=== PATIENT | male | born 1960 | race Caucasian/White ===

== ENCOUNTER 2025-02-02 11:19 | Emergency (ER) | payer SELFPAY ==
[2025-02-02 11:21] VITALS: BP 183/108
--- NOTE | 2025-02-02 12:09 | ED.GENMED ---
History of Present Illness
General
Chief Complaint: Back Pain
Source: patient
Exam Limitations: none
Time Seen by Provider: 02/02/25 11:50
Nursing documentation reviewed up to this point in time: agreed with
History of Present Illness
History of Present Illness:
64-year-old male presents to the ER for evaluation of back pain. Patient has a history of herniated disks in 2007. Reports he was doing a lot of heavy labor on 5 days ago lifting heavy cement and on Saturday started with low back pain and
radiates into his left leg. Pain is gone progressively worse. He denies any bowel or bladder incontinence he denies any weakness. He has been taking Tylenol in fact last about 2 AM without relief.
Phy Exam
General Physical Exam
General Presentation: no apparent distress
General age: appears stated age
General Skin: warm
General Habitus: normal
General Mental: alert
General Hydration: appears well hydrated
Neurological Exam
Neurological Exam: alert, no motor deficits, no sensory deficits and other (Intact sensation to bilateral extremities normal dorsiflexion movement of flexion; negative straight leg raise )
Anjum Coma Scale
Eye Opening: Spontaneous
Verbal Response: Oriented
Motor Response: Obeys Commands
GCS Total Score: 15
Musculoskeletal Exam
Musculoskeletal Exam: full ROM and other (+ lumbar pain with movement, no midline tenderness + b/l paraspinal muscle tenderness )
Course
Orders/Labs/Results
Orders:
Orders
02/02/25 12:09
Dexamethasone Sod Phosphate [Decadron] 10 mg IM NOW STA
HYDROmorphone [Dilaudid] 1 mg IM NOW STA
Lidocaine [Lidocaine 4% Patch] 1 patch TOPICAL NOW STA
Apply Lidocaine patch(s) to:: lower back
02/02/25 14:11
Lumbar Spine Complete, 4 View [CR Lumbar Spine Comp Min 4 Vw*] Urgent
Comment:
Reason For Exam: pain after lifting
Vital Signs
Initial and Last Documented VS:
Initial Vital Signs
Temp Pulse Resp BP Pulse Ox
98 F 78 16 183/108 99
02/02/25 11:21 02/02/25 11:21 02/02/25 11:21 02/02/25 11:21 02/02/25 11:21
Last Documented Vital Signs
Temp Pulse Resp BP Pulse Ox
98 F 78 16 183/108 99
02/02/25 11:21 02/02/25 11:21 02/02/25 11:21 02/02/25 11:21 02/02/25 12:15
MDM/Problems Addressed
Differential Diagnosis Includes:
Not limited to muscle sprain strain, sciatica, lumbar compression fracture
MDM/Problems Addressed:
Symptoms are consistent muscle sprain strain, mild sciatica. No neurological deficits .patient received pain medication here and steroids feeling much better he does report Flexeril worked in the past for him. Will DC with Decadron and Flexeril
close outpatient follow-up family doctor or orthopedics as needed.
*Radiology
Radiology exam reviewed: radiology read reviewed
*Pulse Oximetry
SaO2: 99
Oxygen Mode of Delivery: Room air
Patient hypoxic: no
*Critical Care Note
Total Time (30-74mins, 75-104mins- exclusive of procedures): Not Applicable
ED Attending Note
-
Portions of this chart may have been created with voice recognition software.� Occasional wrong word or��sound alike� substitutions may have occurred due to the inherent limitations of voice recognition software.
Discharge Plan
Departure
Patient Disposition: Home (Routine Discharge)
Date of Disposition: 02/02/25
Time of Disposition: 15:19
Patient with high blood pressure during this ER visit?: Yes
Condition: Fair
Covid-19: Not Applicable
Discharge Problem:
Lumbar spine strain, Sciatica
Instructions: Sciatica (DC), Low back pain - ED (DC), BLOOD PRESSURE
Prescriptions:
New
prednisone 10 mg Tablet
See Rx Instructions .ROUTE .COMPLEX Qty: 30 0RF
Rx Instructions:
Take By Mouth:
40 mg daily x3 days, 30 mg daily x3 days,
20 mg daily x3 days, 10 mg daily x3 days.
cyclobenzaprine 10 mg tablet
10 mg PO TID PRN (Reason: muscle spasm) Qty: 10 0RF
Referrals:
NONE,* [Family Provider, Internal Medicine]
Steven Nunez MD [Active, Orthopedics]
Activity Restrictions/Additional Instructions:
As discussed please start prednisone taper tomorrow you were given the first dose here in the ER. In addition a prescription for Flexeril sent to pharmacy take as directed. This medication is sedating no driving or drinking alcohol taking this
medication. Please close follow-up with family doctor the next several days as well as orthopedics as needed return if any worsening of symptoms.
Interventions
Interventions:
*Risk Screen - Suicide Last Done: 02/02/25 11:23
*Neglect/Abuse Screening Last Done: 02/02/25 11:23
*ED- Fall Risk Assessment Last Done: 02/02/25 14:06
ED-Musculoskeletal Assessment Last Done: 02/02/25 11:33
Discharge Date and Time
Print Language: ICELANDIC
[2025-02-02] MEDS: DILAUDID 1 MG IM (12:18)
[2025-02-02] MEDS: LIDOCAINE 4% PATCH 1 PATCH TOPICAL (12:18)
[2025-02-02] MEDS: DECADRON 10 MG IM (12:19)
[2025-02-02 15:38] VITALS: BP 180/104
== END 2025-02-02 15:38 | disposition home or self-care (01) ==
LOC: EMR 11:19
PROVIDERS: EMERGENCY PHYSICIAN Emergency Medicine
DX: S39.012A Strain of muscle, fascia and tendon of lower back, initial encounter (principal); X50.0XXA Overexertion from strenuous movement or load, initial encounter; M54.42 Lumbago with sciatica, left side; R03.0 Elevated blood-pressure reading, without diagnosis of hypertension
CPT/HCPCS: 99284; 96372 ×2; 72110